=== PATIENT | male | born 1960 | race African-American/Black ===

== ENCOUNTER 2022-03-27 11:57 | Inpatient (IN) | payer OTHER ==
[2022-03-27] MEDS ORDERED: DICYCLOMINE HCL 10 MG CAPSULE PO PRN (14:29)
[2022-03-27] MEDS ORDERED: MAGNESIUM CITRATE 300 ML BOTTLE PO PRN (14:29)
[2022-03-27] MEDS ORDERED: IBUPROFEN 400 MG TABLET (FP) PO PRN (14:29)
[2022-03-27] MEDS ORDERED: ONDANSETRON *ODT* 4 MG TABLET SL PRN (14:29)
[2022-03-27] MEDS ORDERED: NICOTINE 10 MG CARTRIDGE (INHALER) IH PRN (14:29)
[2022-03-27] MEDS ORDERED: BISMUTH SUBSALICYLATE 524 MG/30 ML PO PRN (14:29)
[2022-03-27] MEDS ORDERED: chlordiazePOXIDE HCL 25 MG CAPSULE PO PRN (14:29)
[2022-03-27] MEDS ORDERED: MAGNESIUM HYDROX 2400MG/30ML ORAL SUSPENSION 30 ML CUP PO PRN (14:29)
[2022-03-27] MEDS ORDERED: ACETAMINOPHEN 325 MG TABLET (FP) PO PRN ×2 (14:29)
[2022-03-27] MEDS ORDERED: MAG HYDROX/AL HYDROX/SIMETH 30 ML UNIT-DOSE CUP PO PRN (14:29)
[2022-03-27] MEDS ORDERED: BENZOCAINE/MENTHOL (CHLORASEPTIC ) LOZENGE MM PRN (14:29)
[2022-03-27] MEDS ORDERED: LOPERAMIDE HCL 2 MG CAPSULE PO PRN (14:29)
[2022-03-27 15:23] VITALS: BMI 23.5
[2022-03-27 18:06] LABS: HEMATOCRIT 41.2 % (35.4-49); HEMOGLOBIN 13.4 GM/dL (11.7-16.9); MCH 31.2 pg (25.7-33.7); MCHC 32.5 g/dl (32.0-35.9); MEAN CELL VOLUME 96.1 fl (80-96); MEAN PLT VOLUME 8.2 fl (7.5-11.1); PLATELET COUNT 230 10^3/uL (134-434); RBC 4.29 M/mm3 (4.00-5.60); RDW 14.4 % (11.9-15.9); WHITE BLOOD COUNT 10.1 K/mm3 (4.0-10.0)
[2022-03-27] MEDS: hydrOXYzine PAMOATE 25 MG CAPSULE (FP) PO SCH ×2 (18:08→22:21)
[2022-03-27 18:26] LABS: ALBUMIN 3.3 g/dl (3.4-5.0)
[2022-03-27 18:28] LABS: BILIRUBIN,TOTAL 0.3 mg/dL (0.2-1); BLOOD UREA NITROGEN 16.1 mg/dL (7-18); CREATININE 1.1 mg/dL (0.55-1.3); TOT PROT 6.3 g/dl (6.4-8.2)
[2022-03-27] MEDS: chlordiazePOXIDE HCL 25 MG CAPSULE PO SCH ×2 (18:52→22:22)
[2022-03-27] MEDS: NICOTINE 14 MG/24 HOURS TOPICAL PATCH TD SCH (19:07)
[2022-03-27] MEDS: PRENATAL VITAMINS W/ FOLIC ACID TABLET (FP) PO SCH (19:08)
[2022-03-27] MEDS: THIAMINE HCL 100 MG TABLET (FP) PO SCH (22:21)
[2022-03-27] MEDS: MELATONIN 5 MG TABLETS PO SCH (22:21)
[2022-03-28] MEDS: hydrOXYzine PAMOATE 25 MG CAPSULE (FP) PO SCH ×6 (06:27→22:35)
[2022-03-28] MEDS: chlordiazePOXIDE HCL 25 MG CAPSULE PO SCH ×5 (06:27→22:35)
[2022-03-28] MEDS ORDERED: methaDONE HCL 10 MG TABLET (FOR DETOX USE ONLY) PO SCH (10:15)
[2022-03-28] MEDS: NICOTINE 14 MG/24 HOURS TOPICAL PATCH TD SCH (10:24)
[2022-03-28] MEDS: PRENATAL VITAMINS W/ FOLIC ACID TABLET (FP) PO SCH (10:24)
[2022-03-28] MEDS: METHOCARBAMOL 500 MG TABLET PO PRN (10:25)
[2022-03-28] MEDS ORDERED: methaDONE HCL 40 MG DISPERSABLE TABLET ONE (10:26)
[2022-03-28] MEDS ORDERED: methaDONE HCL 10 MG TABLET ONE (10:26)
[2022-03-28] MEDS: THIAMINE HCL 100 MG TABLET (FP) PO SCH (22:35)
[2022-03-28] MEDS: MELATONIN 5 MG TABLETS PO SCH (22:35)
[2022-03-29] MEDS: hydrOXYzine PAMOATE 25 MG CAPSULE (FP) PO SCH ×5 (06:48→22:15)
[2022-03-29] MEDS: chlordiazePOXIDE HCL 25 MG CAPSULE PO SCH ×4 (06:49→22:16)
[2022-03-29] MEDS ORDERED: methaDONE HCL 40 MG DISPERSABLE TABLET ONE (08:31)
[2022-03-29] MEDS ORDERED: methaDONE HCL 10 MG TABLET ONE (08:31)
[2022-03-29] MEDS: PRENATAL VITAMINS W/ FOLIC ACID TABLET (FP) PO SCH (12:18)
[2022-03-29] MEDS: NICOTINE 14 MG/24 HOURS TOPICAL PATCH TD SCH (12:18)
[2022-03-29] MEDS: THIAMINE HCL 100 MG TABLET (FP) PO SCH (22:15)
[2022-03-29] MEDS: MELATONIN 5 MG TABLETS PO SCH (22:15)
[2022-03-29] MEDS: METHOCARBAMOL 500 MG TABLET PO PRN (22:16)
[2022-03-30] MEDS ORDERED: chlordiazePOXIDE HCL 10 MG CAPSULE PO PRN
[2022-03-30] MEDS: hydrOXYzine PAMOATE 25 MG CAPSULE (FP) PO SCH ×5 (06:03→22:04)
[2022-03-30] MEDS: chlordiazePOXIDE HCL 10 MG CAPSULE PO SCH ×4 (06:03→22:05)
[2022-03-30] MEDS ORDERED: methaDONE HCL 10 MG TABLET ONE (06:40)
[2022-03-30] MEDS ORDERED: methaDONE HCL 40 MG DISPERSABLE TABLET ONE (06:40)
[2022-03-30] MEDS: NICOTINE 14 MG/24 HOURS TOPICAL PATCH TD SCH (10:52)
[2022-03-30] MEDS: PRENATAL VITAMINS W/ FOLIC ACID TABLET (FP) PO SCH (10:53)
[2022-03-30] MEDS: METHOCARBAMOL 500 MG TABLET PO PRN (17:23)
[2022-03-30] MEDS: MELATONIN 5 MG TABLETS PO SCH (22:04)
[2022-03-30] MEDS: THIAMINE HCL 100 MG TABLET (FP) PO SCH (22:04)
[2022-03-31] MEDS ORDERED: methaDONE HCL 10 MG TABLET ONE (04:07)
[2022-03-31] MEDS ORDERED: methaDONE HCL 40 MG DISPERSABLE TABLET ONE (04:08)
[2022-03-31] MEDS: chlordiazePOXIDE HCL 10 MG CAPSULE PO SCH ×2 (05:41→17:35)
[2022-03-31] MEDS: hydrOXYzine PAMOATE 25 MG CAPSULE (FP) PO SCH ×5 (05:41→21:58)
[2022-03-31] MEDS: PRENATAL VITAMINS W/ FOLIC ACID TABLET (FP) PO SCH (10:17)
[2022-03-31] MEDS: NICOTINE 14 MG/24 HOURS TOPICAL PATCH TD SCH (10:17)
[2022-03-31] MEDS: MELATONIN 5 MG TABLETS PO SCH (21:58)
[2022-03-31] MEDS: THIAMINE HCL 100 MG TABLET (FP) PO SCH (21:58)
[2022-03-31] MEDS ORDERED: MIRTAZAPINE 15 MG TABLET (FP) PO SCH (22:00)
[2022-04-01] MEDS ORDERED: methaDONE HCL 10 MG TABLET ONE (03:39)
[2022-04-01] MEDS ORDERED: methaDONE HCL 40 MG DISPERSABLE TABLET ONE (03:40)
[2022-04-01] MEDS ORDERED: chlordiazePOXIDE HCL 10 MG CAPSULE PO ONE (05:00)
[2022-04-01] MEDS: hydrOXYzine PAMOATE 25 MG CAPSULE (FP) PO SCH ×3 (06:18→14:10)
[2022-04-01] MEDS: PRENATAL VITAMINS W/ FOLIC ACID TABLET (FP) PO SCH (09:33)
[2022-04-01] MEDS: NICOTINE 14 MG/24 HOURS TOPICAL PATCH TD SCH (09:34)
[2022-04-01] MEDS ORDERED: ARIPiprazole 5 MG TABLET PO SCH (10:00)
[2022-04-01 12:58] VITALS: BP 100/56; PULSE 67; TEMP 97.1
[2022-04-01 13:12] LABS: SARS-CoV-2 NAA Not Detected (Not Detected)
== END 2022-04-01 14:15 | disposition other institution (70) | DRG 773 ==
LOC: YASAS 11:57 → Y6N 16:24
PROVIDERS: ADMIT Allergy & Immunology; ATTEND Surgery
PROC: HZ2ZZZZ Detoxification Services for Substance Abuse Treatment (ICD-10-PCS; principal; 2022-03-27)
DX: F10.230 Alcohol dependence with withdrawal, uncomplicated (principal); F11.20 Opioid dependence, uncomplicated; F14.20 Cocaine dependence, uncomplicated; F12.20 Cannabis dependence, uncomplicated; F17.210 Nicotine dependence, cigarettes, uncomplicated; F19.24 Other psychoactive substance dependence with psychoactive substance-induced mood disorder; F31.9 Bipolar disorder, unspecified; F41.9 Anxiety disorder, unspecified
CPT/HCPCS: 36415; 80053; 85027; 86780; C9803-CS; Q0162; U0003; U0005

== ENCOUNTER 2022-04-01 14:20 | Inpatient (IN) | payer OTHER ==
[2022-04-01] MEDS ORDERED: P-EPHED 60MG/TRIPROLIDI 2.5MG TABLET PO PRN (15:37)
[2022-04-01] MEDS ORDERED: LOPERAMIDE HCL 2 MG CAPSULE PO PRN (15:37)
[2022-04-01] MEDS ORDERED: ACETAMINOPHEN 325 MG TABLET (FP) PO PRN (15:37)
[2022-04-01] MEDS ORDERED: guaiFENesin 200 MG/10 ML 10 ML UNIT-DOSE CUPS PO PRN (15:37)
[2022-04-01] MEDS ORDERED: MAG HYDROX/AL HYDROX/SIMETH 30 ML UNIT-DOSE CUP PO PRN (15:37)
[2022-04-01] MEDS ORDERED: IBUPROFEN 400 MG TABLET (FP) PO PRN (15:37)
[2022-04-01] MEDS ORDERED: BENZOCAINE/MENTHOL (CHLORASEPTIC ) LOZENGE MM PRN (15:37)
[2022-04-01] MEDS ORDERED: MAGNESIUM HYDROX 2400MG/30ML ORAL SUSPENSION 30 ML CUP PO PRN (15:37)
[2022-04-01] MEDS ORDERED: TUBERCULIN PPD 5 TU/0.1ML VIAL ID ONE (16:01)
[2022-04-01] MEDS ORDERED: hydrOXYzine PAMOATE 25 MG CAPSULE (FP) PO PRN (16:45)
[2022-04-01] MEDS: MELATONIN 5 MG TABLETS PO PRN (21:13)
[2022-04-01] MEDS: THIAMINE HCL 100 MG TABLET (FP) PO SCH (21:13)
[2022-04-01] MEDS: MIRTAZAPINE 15 MG TABLET (FP) PO SCH (21:14)
[2022-04-02] MEDS ORDERED: methaDONE HCL 40 MG DISPERSABLE TABLET ONE (05:34)
[2022-04-02] MEDS ORDERED: methaDONE HCL 10 MG TABLET ONE (05:34)
[2022-04-02] MEDS ORDERED: methaDONE HCL 40 MG DISPERSABLE TABLET PO SCH (06:00)
[2022-04-02] MEDS: PRENATAL VITAMINS W/ FOLIC ACID TABLET (FP) PO SCH (10:00)
[2022-04-02] MEDS: ARIPiprazole 5 MG TABLET PO SCH (10:00)
[2022-04-02] MEDS ORDERED: NICOTINE 10 MG CARTRIDGE (INHALER) IH PRN (10:46)
[2022-04-02] MEDS: THIAMINE HCL 100 MG TABLET (FP) PO SCH (21:10)
[2022-04-02] MEDS: MELATONIN 5 MG TABLETS PO PRN (21:10)
[2022-04-02] MEDS: MIRTAZAPINE 15 MG TABLET (FP) PO SCH (21:10)
[2022-04-03] MEDS ORDERED: methaDONE HCL 10 MG TABLET ONE (03:49)
[2022-04-03] MEDS ORDERED: methaDONE HCL 40 MG DISPERSABLE TABLET ONE (03:49)
[2022-04-03] MEDS: ARIPiprazole 5 MG TABLET PO SCH (09:35)
[2022-04-03] MEDS: PRENATAL VITAMINS W/ FOLIC ACID TABLET (FP) PO SCH (09:35)
[2022-04-03] MEDS: MELATONIN 5 MG TABLETS PO PRN (21:27)
[2022-04-03] MEDS: THIAMINE HCL 100 MG TABLET (FP) PO SCH (21:27)
[2022-04-03] MEDS: MIRTAZAPINE 15 MG TABLET (FP) PO SCH (21:27)
[2022-04-04] MEDS ORDERED: methaDONE HCL 40 MG DISPERSABLE TABLET ONE (02:53)
[2022-04-04] MEDS ORDERED: methaDONE HCL 10 MG TABLET ONE (02:53)
[2022-04-04] MEDS: MAGNESIUM CITRATE 300 ML BOTTLE PO PRN (08:26)
[2022-04-04] MEDS: ARIPiprazole 5 MG TABLET PO SCH (10:20)
[2022-04-04] MEDS: PRENATAL VITAMINS W/ FOLIC ACID TABLET (FP) PO SCH (10:20)
[2022-04-04] MEDS: THIAMINE HCL 100 MG TABLET (FP) PO SCH (21:10)
[2022-04-04] MEDS: MIRTAZAPINE 15 MG TABLET (FP) PO SCH (21:10)
[2022-04-04] MEDS: MELATONIN 5 MG TABLETS PO PRN (21:10)
[2022-04-05] MEDS ORDERED: methaDONE HCL 10 MG TABLET ONE (03:01)
[2022-04-05] MEDS ORDERED: methaDONE HCL 40 MG DISPERSABLE TABLET ONE (03:02)
[2022-04-05 10:14] LABS: SARS-CoV-2 NAA Not Detected (Not Detected)
[2022-04-05] MEDS: PRENATAL VITAMINS W/ FOLIC ACID TABLET (FP) PO SCH (10:29)
[2022-04-05] MEDS: ARIPiprazole 5 MG TABLET PO SCH (10:29)
[2022-04-05] MEDS: MIRTAZAPINE 15 MG TABLET (FP) PO SCH (21:38)
[2022-04-05] MEDS: THIAMINE HCL 100 MG TABLET (FP) PO SCH (21:39)
[2022-04-05] MEDS: MELATONIN 5 MG TABLETS PO PRN (21:39)
[2022-04-06] MEDS ORDERED: methaDONE HCL 10 MG TABLET ONE (04:00)
[2022-04-06] MEDS ORDERED: methaDONE HCL 40 MG DISPERSABLE TABLET ONE (04:01)
[2022-04-06] MEDS: PRENATAL VITAMINS W/ FOLIC ACID TABLET (FP) PO SCH (10:19)
[2022-04-06] MEDS: ARIPiprazole 5 MG TABLET PO SCH (10:20)
[2022-04-06] MEDS: MAGNESIUM CITRATE 300 ML BOTTLE PO PRN (10:55)
[2022-04-06] MEDS ORDERED: SODIUM PHOSPHATE/NA BIPHOS 133 ML ENEMA PR ONE (14:49)
[2022-04-06] MEDS: MIRTAZAPINE 15 MG TABLET (FP) PO SCH (21:23)
[2022-04-06] MEDS: MELATONIN 5 MG TABLETS PO PRN (21:23)
[2022-04-06] MEDS: THIAMINE HCL 100 MG TABLET (FP) PO SCH (21:24)
[2022-04-07] MEDS ORDERED: methaDONE HCL 40 MG DISPERSABLE TABLET ONE (05:46)
[2022-04-07] MEDS ORDERED: methaDONE HCL 10 MG TABLET ONE (05:46)
[2022-04-07] MEDS: PRENATAL VITAMINS W/ FOLIC ACID TABLET (FP) PO SCH (10:08)
[2022-04-07] MEDS: ARIPiprazole 5 MG TABLET PO SCH (10:09)
[2022-04-07] MEDS: THIAMINE HCL 100 MG TABLET (FP) PO SCH (21:05)
[2022-04-07] MEDS: MELATONIN 5 MG TABLETS PO PRN (21:05)
[2022-04-07] MEDS: MIRTAZAPINE 15 MG TABLET (FP) PO SCH (21:05)
[2022-04-08] MEDS ORDERED: methaDONE HCL 10 MG TABLET ONE (02:59)
[2022-04-08] MEDS ORDERED: methaDONE HCL 40 MG DISPERSABLE TABLET ONE (03:00)
[2022-04-08] MEDS: ARIPiprazole 5 MG TABLET PO SCH (09:35)
[2022-04-08] MEDS: PRENATAL VITAMINS W/ FOLIC ACID TABLET (FP) PO SCH (09:35)
[2022-04-08] MEDS: MIRTAZAPINE 15 MG TABLET (FP) PO SCH (21:16)
[2022-04-08] MEDS: MELATONIN 5 MG TABLETS PO PRN (21:17)
[2022-04-08] MEDS: THIAMINE HCL 100 MG TABLET (FP) PO SCH (21:18)
[2022-04-09] MEDS ORDERED: methaDONE HCL 10 MG TABLET ONE (03:54)
[2022-04-09] MEDS ORDERED: methaDONE HCL 40 MG DISPERSABLE TABLET ONE (03:55)
[2022-04-09] MEDS: PRENATAL VITAMINS W/ FOLIC ACID TABLET (FP) PO SCH (10:08)
[2022-04-09] MEDS: ARIPiprazole 5 MG TABLET PO SCH (10:08)
[2022-04-09] MEDS: MIRTAZAPINE 15 MG TABLET (FP) PO SCH (21:09)
[2022-04-09] MEDS: THIAMINE HCL 100 MG TABLET (FP) PO SCH (21:10)
[2022-04-09] MEDS: MELATONIN 5 MG TABLETS PO PRN (21:10)
[2022-04-10] MEDS ORDERED: methaDONE HCL 10 MG TABLET ONE (02:57)
[2022-04-10] MEDS ORDERED: methaDONE HCL 40 MG DISPERSABLE TABLET ONE (02:57)
[2022-04-10 06:58] VITALS: BP 110/69; PULSE 70; TEMP 98.2
== END 2022-04-10 08:59 | disposition home or self-care (01) | DRG 772 ==
LOC: YASAS 14:20 → Y3W 14:21
PROVIDERS: ADMIT Allergy & Immunology; ATTEND Psychiatry & Neurology Pain Medicine
PROC: HZ42ZZZ Group Counseling for Substance Abuse Treatment, Cognitive-Behavioral (ICD-10-PCS; principal; 2022-04-01)
DX: F11.20 Opioid dependence, uncomplicated (principal); F10.20 Alcohol dependence, uncomplicated; F14.20 Cocaine dependence, uncomplicated; F17.210 Nicotine dependence, cigarettes, uncomplicated; M54.50 Low back pain, unspecified; G89.29 Other chronic pain; Z59.00 Homelessness unspecified
CPT/HCPCS: C9803-CS; U0003; U0005